=== PATIENT | male | born 1955 | race Caucasian/White ===

== ENCOUNTER 2020-08-24 07:37 | Outpatient (CLI) | payer OTHER ==
[~2020-08-24] VITALS: Ht 177.8 cm; Wt 100.0 kg
[2020-08-28] MEDS ORDERED: OMG1KC PO (14:22)
[2020-08-28] MEDS ORDERED: LORA-404 PO (14:22)
[2020-08-28] MEDS ORDERED: MTP100TCR PO (14:22)
[2020-08-28] MEDS ORDERED: ESCI10TA PO (14:22)
[2020-08-28] MEDS ORDERED: LISI20TA26 PO (14:22)
[2020-08-29] MEDS ORDERED: ASPI-999 PO (07:12)
[2020-08-29] MEDS ORDERED: TRM50T PO (09:47)
[2020-08-29] MEDS ORDERED: CIPR-225 PO (09:47)
[2020-08-29] MEDS ORDERED: PHEN-640 PO (09:47)
== END 2020-08-28 14:26 | disposition home or self-care (01) ==
LOC: PREOP 07:37
PROVIDERS: ATTEND Urology
DX: Z01.818 Encounter for other preprocedural examination (principal)

== ENCOUNTER → 2020-09-05 | Outpatient (CLI) | payer OTHER ==
[~2020-09-05] MED LIST: ASPI-999 PO; AZIT250T12 PO; CEFD300C3 PO; CIPR-225 PO; ESCI10TA PO; LISI20TA26 PO; LORA-404 PO; MTP100TCR PO; OMG1KC PO; PHEN-640 PO; TRM50T PO
== END | disposition home or self-care (01) ==
LOC: PREOP 12:26
PROVIDERS: ATTEND Urology
DX: Z01.818 Encounter for other preprocedural examination (principal)

== ENCOUNTER 2020-09-09 00:32 | Emergency (ER) | payer OTHER ==
[~2020-09-09] VITALS: Ht 182 cm; Wt 100.0 kg
[~2020-09-09 00:32] MED LIST changes: -AZIT250T12 PO; -CEFD300C3 PO
[2020-09-09 01:42] LABS: BILIRUBIN,URINE NEGATIVE (NEGATIVE); CLARITY,URINE CLEAR; COLOR,URINE YELLOW; GLUCOSE, URINE (UA) NEGATIVE (NEGATIVE); KETONES,URINE NEGATIVE (NEGATIVE); LEUKOCYTE ESTERASE ,URINE NEGATIVE (NEGATIVE); NITRITE,URINE NEGATIVE (NEGATIVE); PH,URINE 5.5 (5-9); PROTEIN,URINE TRACE (NEGATIVE)
[2020-09-09] MEDS ORDERED: KETOROLAC 30 MG/ML VIAL IVP ONE (01:45)
[2020-09-09] MEDS ORDERED: NS IV 1000 ML 1,000 ML IV SCH (01:45)
[2020-09-09 01:49] LABS: BACTERIA,URINE TRACE /HPF; SQUAMOUS EPITHELIAL CELL,UR 0-2 /HPF; WBC,URINE RARE /HPF
--- NOTE | 2020-09-09 01:49 | ED Abdominal Pain ---
General Chief Complaint: - Urinary Stated Complaint: CAN'T URINATE,KIDNEY PAIN Source of Information: Patient Exam Limitations: No Limitations History of Present Illness Date Seen by Provider: Sep 09, 2020 Time Seen by Provider: 01:29 Initial Comments Patient presents ER by private conveyance with his significant other and chief complaint of a spasming, 8-10 out of 10 pain in his left flank and kidney region radiating down to his left groin. He denies a history of kidney stones or hematuria. He says he has a hard time urinating. He has a history of prostatism and Friday, [address] Zarate did a scope found a mass in his bladder and referred him on to [facility]. He has not set up an appointment there yet. No fevers chills nausea vomiting or constipation. He did have some loose stools. He denies a history of diverticulosis or colonoscopy. No abdominal surgeries. He has not taken anything for the pain. He has a history of hypertension. Allergies and Home Medications Allergies Coded Allergies: codeine (Verified Allergy, Unknown, Nausea, 08/29/20) Home Medications Azithromycin 250 Mg Tablet, 250 MG PO DAILY Prescribed by: CORI FELIX on 09/09/20356 Cefdinir 300 Mg Capsule, 300 MG PO BID Prescribed by: CORI FELIX on 09/09/20356 Ciprofloxacin HCl 500 Mg Tablet, 500 MG PO BID Prescribed by: DELMAR ZULETA on 08/29/20946 Escitalopram Oxalate 10 Mg Tablet, 10 MG PO DAILY, (Reported) Lisinopril 20 Mg Tablet, 20 MG PO DAILY, (Reported) Lorazepam 0.5 Mg Tablet, 0.25-0.5 MG PO TID PRN for ANXIETY, (Reported) Metoprolol Succinate 100 Mg Tab.er.24h, 100 MG PO DAILY, (Reported) [place] 3 Polyunsat Fatty Acids 1,000 Mg Cap, 1,000 MG PO DAILY, (Reported) Phenazopyridine HCl 200 Mg Tablet, 1 TAB PO TID Prescribed by: DELMAR ZULETA on 08/29/20946 Tramadol HCl 50 Mg Tablet, 50-100 MG PO Q4H PRN for PAIN-MODERATE (5-7) Prescribed by: DELMAR ZULETA on 08/29/20946 Patient Home Medication List Home Medication List Reviewed: Yes Review of Systems Review of Systems Constitutional: No chills, No diaphoresis EENTM: No Blurred Vision, No Double Vision Respiratory: Denies Cough, Denies Shortness of Air Cardiovascular: Denies Chest Pain, Denies Lightheadedness Gastrointestinal: Denies Abdominal Pain, Denies Constipated, Denies Diarrhea, Denies Nausea Genitourinary: Denies Burning, Denies Discharge Musculoskeletal: No back pain, No joint pain Skin: No pruritus, No rash Psychiatric/Neurological: Denies Anxiety, Denies Depressed All Other Systems Reviewed Negative Unless Noted: Yes Past Sasfvgc-[id number]-[id number] Hx Patient Social History Alcohol Use: Denies Use Smoking Status: Former Smoker Former Smoker, Quit: August 28, 2005 2nd Hand Smoke Exposure: No Recent Hopitalizations: No Immunizations Up To Date Date of Influenza Vaccine: Jan 06, 2020 Seasonal Allergies Seasonal Allergies: Yes Past Medical History Surgeries: No Respiratory: No Currently Using CPAP: No Currently Using BIPAP: No Cardiac: Yes Hypertension Neurological: No Genitourinary: Yes Gastrointestinal: No Musculoskeletal: No Endocrine: No HEENT: No Cancer: No Psychosocial: No Integumentary: No Blood Disorders: No Physical Exam Vital Signs Vital Signs - First Documented 09/09/20 01:40 Temp 36.9 Pulse 104 Resp 16 B/P (MAP) 122/83 (96) Pulse Ox 95 O2 Delivery Room Air Capillary Refill : Height/Weight/BMI Height: '" Weight: lbs. oz. kg; 31.63 BMI Method: General Appearance: WD/WN, mild distress HEENT: PERRL/EOMI, pharynx normal Neck: full range of motion, normal inspection Respiratory: lungs clear, normal breath sounds, no respiratory distress, no accessory muscle use Cardiovascular: normal peripheral pulses, regular rate, rhythm Gastrointestinal: normal bowel sounds, non tender, soft Back: normal inspection, no vertebral tenderness, CVA tenderness (L) (Mild) Neurologic/Psychiatric: alert, normal mood/affect, oriented x 3 Progress/Results/Core Measures Results/Orders Lab Results Laboratory Tests Test 09/09/20 01:35 09/09/20 02:30 Range/Units Urine Color YELLOW Urine Clarity CLEAR Urine pH 5.5 5-9 Urine Specific [place] >=1.030 1.016-1.022 Urine Protein TRACE H NEGATIVE Urine Glucose (UA) NEGATIVE NEGATIVE Urine Ketones NEGATIVE NEGATIVE Urine Nitrite NEGATIVE NEGATIVE Urine Bilirubin NEGATIVE NEGATIVE Urine Urobilinogen 0.2 < = 1.0 MG/DL Urine Leukocyte Esterase NEGATIVE NEGATIVE Urine RBC (Auto) 1+ H NEGATIVE Urine RBC 2-5 H /HPF Urine WBC RARE /HPF Urine Squamous Epithelial Cells 0-2 /HPF Urine Crystals NONE /LPF Urine Bacteria TRACE /HPF Urine Casts PRESENT /LPF Urine Hyaline Casts 0-2 H /LPF Urine Mucus SMALL H /LPF Urine Culture Indicated NO White Blood Count 6.4 4.3-11.0 10^3/uL Red Blood Count 4.59 4.30-5.52 10^6/uL Hemoglobin 13.4 13.3-17.7 g/dL Hematocrit 40 40-54 % Mean Corpuscular Volume 87 80-99 fL Mean Corpuscular Hemoglobin 29 25-34 pg Mean Corpuscular Hemoglobin Concent 34 32-36 g/dL Red Cell Distribution Width 12.8 10.0-14.5 % Platelet Count 182 130-400 10^3/uL Mean Platelet Volume 10.0 9.0-12.2 fL Immature Granulocyte % (Auto) 1 % Neutrophils (%) (Auto) 72 42-75 % Lymphocytes (%) (Auto) 13 12-44 % Monocytes (%) (Auto) 13 H 0-12 % Eosinophils (%) (Auto) 1 0-10 % Basophils (%) (Auto) 0 0-10 % Neutrophils # (Auto) 4.6 1.8-7.8 10^3/uL Lymphocytes # (Auto) 0.8 L 1.0-4.0 10^3/uL Monocytes # (Auto) 0.8 0.0-1.0 10^3/uL Eosinophils # (Auto) 0.1 0.0-0.3 10^3/uL Basophils # (Auto) 0.0 0.0-0.1 10^3/uL Immature Granulocyte # (Auto) 0.0 0.0-0.1 10^3/uL Sodium Level 138 135-145 MMOL/L Potassium Level 4.9 3.6-5.0 MMOL/L Chloride Level 103 98-107 MMOL/L Carbon Dioxide Level 23 21-32 MMOL/L Anion Gap 12 5-14 MMOL/L Blood Urea Nitrogen 26 H 7-18 MG/DL Creatinine 0.97 0.60-1.30 MG/DL Estimat Glomerular Filtration Rate > 60 BUN/Creatinine Ratio 27 Glucose Level 111 H 70-105 MG/DL Calcium Level 9.5 8.5-10.1 MG/DL Corrected Calcium 9.5 8.5-10.1 MG/DL Total Bilirubin 0.5 0.1-1.0 MG/DL Aspartate Amino Transf (AST/SGOT) 16 5-34 U/L Alanine Aminotransferase (ALT/SGPT) 29 0-55 U/L Alkaline Phosphatase 51 40-136 U/L C-Reactive Protein High Sensitivity 2.62 H 0.00-0.50 MG/DL Total Protein 7.2 6.4-8.2 GM/DL Albumin 4.0 3.2-4.5 GM/DL My Orders Orders - CORI FELIX Ua Culture If Indicated (09/09/20 00:43) Ketorolac Injection (Toradol Injection) (09/09/20 01:45) Ed Iv/Invasive Line Start (09/09/20 01:44) Ns Iv 1000 Ml (Sodium Chloride 0.9%) (09/09/20 01:45) Cbc With Automated Diff (09/09/20 01:44) Comprehensive Metabolic Panel (09/09/20 01:44) Hs C Reactive Protein (09/09/20 01:44) Ct Abd/Pelvis Wo(Kidney Stone) (09/09/20 01:44) Medications Given in ED Current Medications Medications Dose Ordered Sig/Jhonatan Route Start Time Stop Time Status Last Admin Dose Admin Ketorolac Tromethamine 30 mg ONCE ONCE IVP 09/09/20 01:45 09/09/20 01:46 DC 09/09/20 02:38 30 MG Vital Signs/I&O 09/09/20 09/09/20 01:40 04:01 Temp 36.9 Pulse 104 93 Resp 16 16 B/P (MAP) 122/83 (96) 133/87 Pulse Ox 95 93 O2 Delivery Room Air Room Air Progress Progress Note : Time: 01:48 Progress Note Plan to give him a liter of fluids. His bedside bladder scanner at most read 16 mL. He was eventually able to produce a urine specimen which we will collect as well as some labs and get a CT scan of his abdomen pelvis without IV contrast kidney stone study. Toradol for his pain. Diagnostic Imaging Diagonstic Imaging: CT Plain Films/CT/US/NM/MRI: abdomen, pelvis Comments No renal stones or hydronephrosis. Diverticulosis without acute diverticulitis. No small bowel obstruction, free air or free fluid. 7 mm fatty nodule of the left adrenal gland, nonspecific. Left lower lobe pleural-parenchymal change, nonspecific but cannot rule out pneumonia. Reviewed: Reviewed [place] Study, Reviewed by Me Departure Impression Primary Impression: Pneumonia Qualified Codes: J18.9 - Pneumonia, unspecified organism Additional Impression: Diaphragmatic pleurisy Disposition: HOME, SELF-CARE Condition: Stable Departure-Patient Inst. Decision time for Depature: 03:56 Referrals: KATIA FARIA MD (PCP/Family) Primary Care Physician Patient Instructions: Pneumonia, Adult (DC), Pleuritic Chest Pain Add. Discharge Instructions: Drink plenty of fluids. Cefdinir 1 capsule twice a day for the next 10 days. Azithromycin 1 tablet daily starting Friday for the next 4 days. Return to the ER for worsening shortness of air or other worrisome symptoms. Follow-up with your primary care doctor on Friday at your scheduled appointment. Vapor rubs such as Vicks or Mentholatum may be helpful. Heating pads applied over the place that hurts may be helpful. Tylenol 1000 mg every 8 hours as necessary for pain. Ibuprofen 800 mg every 8 hours necessary for pain. All discharge instructions reviewed with patient and/or family. Voiced understanding. Scripts Azithromycin (Azithromycin) 250 Mg Tablet 250 MG PO DAILY, #4 TAB 0 Refills Prov: CORI FELIX 09/09/20 Cefdinir (Cefdinir) 300 Mg Capsule 300 MG PO BID for 10 Days, #20 CAP 0 Refills Prov: CORI FELIX 09/09/20 Work/School Note: Work Release Form Date Seen in the Emergency Department: Sep 09, 2020 Return to Work: Sep 12, 2020 Restrictions: No Restrictions Copy Copies To 1: KATIA FARIA MD, TITUS J Sep 09, 2020 01:49
[2020-09-09 01:50] LABS: HYALINE CASTS, URINE 0-2 /LPF
[2020-09-09 02:47] LABS: BASOPHILS % (AUTO) 0 % (0-10); EOSINOPHILS # (AUTO) 0.1 10^3/uL (0.0-0.3); EOSINOPHILS % (AUTO) 1 % (0-10); HEMATOCRIT 40 % (40-54); HEMOGLOBIN 13.4 g/dL (13.3-17.7); LYMPHOCYTES # (AUTO) 0.8 10^3/uL (1.0-4.0); LYMPHOCYTES % (AUTO) 13 % (12-44); MEAN CORPUSCULAR HEMOGLOBIN 29 pg (25-34); MEAN CORPUSCULAR HGB CONC 34 g/dL (32-36); MEAN CORPUSCULAR VOLUME 87 fL (80-99); MONOCYTES # (AUTO) 0.8 10^3/uL (0.0-1.0); MONOCYTES % (AUTO) 13 % (0-12); NEUTROPHILS # (AUTO) 4.6 10^3/uL (1.8-7.8); NEUTROPHILS % (AUTO) 72 % (42-75); PLATELET COUNT 182 10^3/uL (130-400); WHITE BLOOD COUNT 6.4 10^3/uL (4.3-11.0)
[2020-09-09 02:53] LABS: CHLORIDE 103 MMOL/L (98-107); POTASSIUM 4.9 MMOL/L (3.6-5.0); SODIUM 138 MMOL/L (135-145)
[2020-09-09 02:54] LABS: CALCIUM 9.5 MG/DL (8.5-10.1)
[2020-09-09 02:56] LABS: GLUCOSE 111 MG/DL (70-105); TOTAL PROTEIN 7.2 GM/DL (6.4-8.2)
[2020-09-09 02:57] LABS: CARBON DIOXIDE 23 MMOL/L (21-32)
[2020-09-09 02:58] LABS: BILIRUBIN,TOTAL 0.5 MG/DL (0.1-1.0)
[2020-09-09 02:59] LABS: ALKALINE PHOSPHATASE 51 U/L (40-136); CREATININE SERUM 0.97 MG/DL (0.60-1.30)
[2020-09-09 03:00] LABS: BUN/CREATININE RATIO 27
[2020-09-09 03:04] LABS: ALANINE AMINOTRANSFERASE 29 U/L (0-55)
[2020-09-09 03:05] LABS: GFR ESTIMATED > 60
[2020-09-09] MEDS ORDERED: AZIT250T12 PO (03:57)
[2020-09-09] MEDS ORDERED: CEFD300C3 PO (03:57)
[2020-09-09 04:01] VITALS: BP 133/87
[2020-09-09] MEDS ORDERED: AZITHROMYCIN 250 MG TAB (ZITHROMAX) PO ONE (04:15)
[2020-09-09] MEDS ORDERED: cefTRIAXone FOR IV USE 1,000 MG in WATER (STERILE) FOR INJECTION 10 ML IV ONE (04:15)
--- NOTE | 2020-09-09 07:03 | Diagnostic Imaging Report ---
PROCEDURE: CT urinary tract, rule out kidney stone. TECHNIQUE: Multiple contiguous axial images were obtained through the abdomen and pelvis without the use of intravenous contrast. Auto Exposure Controls were utilized during the CT exam to meet ALARA standards for radiation dose reduction. INDICATION: Flank pain with dysuria for 2 days. COMPARISON: None. DISCUSSION: Patchy opacity within the left lung base could be seen with atelectasis or pneumonia. A 4 mm nodule noted within the right lower lobe, indeterminate. Follow-up by the Fleischner criteria is recommended. Normal heart size. No pleural or pericardial fluid. Small hiatal hernia. The gallbladder is mostly contracted. The liver, pancreas, spleen, and right adrenal gland are unremarkable. A 7 mm fatty nodule within the left adrenal gland is statistically benign. No renal stone or hydronephrosis within either kidney. The aorta is normal in caliber and contains moderate atherosclerotic plaque. Prostate is borderline enlarged. The urinary bladder is unremarkable. Diverticulosis with no secondary evidence for diverticulitis. The appendix is normal. No obstruction, pneumatosis, or pneumoperitoneum. No ascites. No acute osseous abnormality identified. Degenerative disease noted within the spine. IMPRESSION: 1. No renal stone or hydronephrosis on either side. 2. Diverticular disease. 3. Infiltrate within the left lung base, possible atelectasis and/or pneumonia. 4. A 4 mm right lower lobe pulmonary nodule. 5. Agree with preliminary report. Dictated by: Dictated on workstation # [id number]
== END 2020-09-09 04:03 | disposition home or self-care (01) ==
LOC: EDUNIT# 00:32 → ER 00:34
DX: R09.1 Pleurisy (principal); J18.9 Pneumonia, unspecified organism; I10 Essential (primary) hypertension; R39.198 Other difficulties with micturition; Z87.891 Personal history of nicotine dependence; Z79.899 Other long term (current) drug therapy
CPT/HCPCS: 36415; 74176; 80053; 81000; 85025; 86141